=== PATIENT | male | born 1960 | race Caucasian/White ===

== ENCOUNTER 2017-04-02 11:53 | Outpatient (CLI) | payer BC ==
--- NOTE | 2017-04-02 15:27 | XRAY Report ---
EXAM: LEFT FOOT RADIOGRAPHY EXAM DATE: 04/02/2017 12:03 PM. CLINICAL HISTORY: LEFT FOOT PAIN AFTER FALLING. COMPARISON: None. TECHNIQUE: 3 views. FINDINGS: Bones: Small plantar spur. No fracture. No bone lesion. Joints: Mild first metatarsophalangeal joint osteoarthritis with osteophytosis Soft Tissues: Normal. No soft tissue swelling. IMPRESSION: 1. No fracture or dislocation 2. Mild first metatarsophalangeal joint osteoarthritis 3. Small plantar spur [facility] Referring Provider Line: [phone] SITE ID: [id number]
== END 2017-04-02 11:54 | disposition home or self-care (01) ==
LOC: DI.S 11:53
PROVIDERS: ATTEND Nurse Practitioner Family
DX: M19.072 Primary osteoarthritis, left ankle and foot (principal)

== ENCOUNTER 2018-05-08 15:35 | Outpatient (CLI) | payer BC ==
--- NOTE | 2018-05-09 10:35 | XRAY Report ---
Reason: CHRONIC BL MID FOOT PAIN Procedure Date: 05/08/2018 Accession Number: [id number] / [id number] Procedure: XR - Foot 3 View BILAT CPT Code: FULL RESULT: EXAMS: 1. RIGHT FOOT RADIOGRAPHY 2. LEFT FOOT RADIOGRAPHY EXAM DATE: 05/08/2018 04:13 PM. CLINICAL HISTORY: Chronic bilateral midfoot pain. COMPARISON: FOOT 3 VIEW LT 04/02/2017 12:04 PM. TECHNIQUE: 3 views each foot. FINDINGS: Right: Bones: Os trigonum with chronic-appearing fracture. No fractures or bone lesions. Joints: Normal. No subluxations. Soft Tissues: Vascular calcifications. Left: Bones: Normal. No fractures or bone lesions. Joints: Normal. No subluxations. Soft Tissues: Normal. No soft tissue swelling. 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 [facility]
== END 2018-05-08 15:36 | disposition home or self-care (01) ==
LOC: DI 15:35
PROVIDERS: ATTEND Podiatrist
DX: S82.891A Other fracture of right lower leg, initial encounter for closed fracture (principal)

== ENCOUNTER 2019-06-24 07:06 | Outpatient (CLI) | payer OTHER ==
[2019-06-24 10:27] LABS: CHOLESTEROL 158 mg/dL; HDL CHOLESTEROL 53 mg/dL; LDL CHOLESTEROL,CALCULATED 85 mg/dL; LDL/HDL RATIO 1.6 (<3.6); VLDL CHOLESTEROL 20 mg/dL
== END 2019-06-24 07:07 | disposition home or self-care (01) ==
LOC: LAB.S 07:06
PROVIDERS: ATTEND Internal Medicine Cardiovascular Disease
DX: E78.00 Pure hypercholesterolemia, unspecified (principal); I25.119 Atherosclerotic heart disease of native coronary artery with unspecified angina pectoris
CPT/HCPCS: 36415; 80061; 83721

== ENCOUNTER 2020-03-04 07:29 | Outpatient (CLI) | payer OTHER ==
[2020-03-04 15:21] LABS: CHOL/HDL RATIO 2.6 (<5.0); CHOLESTEROL 148 mg/dL; HDL CHOLESTEROL 57 mg/dL; LDL CHOLESTEROL,CALCULATED 77 mg/dL; LDL/HDL RATIO 1.4 (<3.6); VLDL CHOLESTEROL 14 mg/dL
== END 2020-03-04 07:30 | disposition home or self-care (01) ==
LOC: LAB.S 07:29
PROVIDERS: ATTEND Internal Medicine Cardiovascular Disease
DX: E78.00 Pure hypercholesterolemia, unspecified (principal); I25.119 Atherosclerotic heart disease of native coronary artery with unspecified angina pectoris
CPT/HCPCS: 36415; 80061; 83721

== ENCOUNTER 2020-12-13 12:32 | Outpatient (CLI) | payer OTHER ==
--- NOTE | 2020-12-13 18:43 | Ultrasound Report ---
PROCEDURE: Pelvic Limited or F/U INDICATIONS: GROIN MASS TECHNIQUE: Real-time scanning was performed of the left inguinal region. COMPARISON: None FINDINGS: The left groin, there is a 8mm fascial defect noted associated with a fat-containing left inguinal he rnia sac measuring 3.0 x 2.1 x 2.4 cm. No evidence of internal peristalsing bowel. Hernia appears to be reducible during the exam. IMPRESSION: Reducible fat-containing left inguinal hernia Reviewed by: Ashu Palacios MD on 12/13/2020 5:42 PM [facility] Approved by: Ashu Palacios MD on 12/13/2020 5:42 PM [facility] Station ID: [id number]
== END 2020-12-13 12:33 | disposition home or self-care (01) ==
LOC: DI 12:32
PROVIDERS: ATTEND Nurse Practitioner Family
DX: K40.90 Unilateral inguinal hernia, without obstruction or gangrene, not specified as recurrent (principal)

== ENCOUNTER 2021-01-19 10:26 | Day surgery (SDC) | payer OTHER ==
[2021-01-19] MEDS ORDERED: LACTATED RINGERS 1,000 ML IV ONE ×2 (10:52→14:26)
--- NOTE | 2021-01-19 11:21 | ANESTHESIA ---
Pre-Anesthesia VS, & Labs - Diagnosis recurrent left inguinal hernia - Procedure Laparoscopic left inguinal hernia repair with mesh Vital Signs: Temp Pulse Resp BP Pulse Ox 36.5 C 68 16 131/80 H 97 01/19/21 10:44 01/19/21 10:44 01/19/21 10:44 01/19/21 10:44 01/19/21 10:44 Height: 6 ft Weight (kg): 87 kg Body Mass Index: 25.9 BMI Classification: Overweight - NPO >8 hours Home Medications and Allergies Home Medications: Ambulatory Orders Arginine [l-Arginine] 1,500 mg PO BID 01/10/21 Aspirin [Aspirin EC] 81 mg PO DAILY 01/10/21 Cholecalciferol [Vitamin D3] 5,000 unit PO DAILY 01/10/21 Metoprolol Succinate [Toprol Xl] 25 mg PO DAILY 01/10/21 Rosuvastatin Calcium [Crestor] 40 mg PO DAILY 01/10/21 Tadalafil [Cialis] 20 mg PO PRN PRN 01/10/21 Ubidecarenone [Co Q-10] 300 mg PO DAILY 01/10/21 levOCARNitine tartrate [l-Carnitine] 1,500 mg PO BID 01/10/21 Arginine [l-Arginine] 1,500 mg PO BID 01/10/21 Aspirin [Aspirin EC] 81 mg PO DAILY 01/10/21 Cholecalciferol [Vitamin D3] 5,000 unit PO DAILY 01/10/21 Metoprolol Succinate [Toprol Xl] 25 mg PO DAILY 01/10/21 Rosuvastatin Calcium [Crestor] 40 mg PO DAILY 01/10/21 Tadalafil [Cialis] 20 mg PO PRN PRN 01/10/21 Ubidecarenone [Co Q-10] 300 mg PO DAILY 01/10/21 levOCARNitine tartrate [l-Carnitine] 1,500 mg PO BID 01/10/21 Allergies/Adverse Reactions: Allergies Allergy/AdvReac Type Severity Reaction Status Date / Time No Known Drug Allergies Allergy Verified 09/26/12 10:18 Anes History & Medical History - Medical History Cardiovascular: reports: High cholesterol, Coronary artery disease, Angina (non- obstructive angina) Pulmonary: reports: None Gastrointestinal: reports: None Urinary: reports: None Neuro: reports: None Musculoskeletal: reports: Osteoarthritis Endocrine/Autoimmune: reports: None Skin: reports: None Smoking Status: Former smoker Psychosocial: reports: Alcohol (typically 1-2 drinks per week) History of Cancer?: Yes (hx of squamous cell skin cancer) - Surgical History General: reports: Colonoscopy Cardiothoracic: reports: Coronary stent (RCA stent.) Orthopedic: reports: Arthroscopic surgery Exam General: Alert, Oriented x3, Cooperative, No acute distress Dental: Other (recent dental work for cracked molar) Mouth Openin Fingerbreadth Neck Mobility: Normal Mallampati classification: II Thyromental Distance: 4-6 cm Mental/Cognitive Status: Alert/Oriented X3, Normal for patient Plan Anesthesia Type: General Consent for Procedure(s) Verified and Reviewed: Yes Code Status: Attempt Resuscitation ASA classification: 3-Severe systemic disease Is this case an emergency?: No
[2021-01-19] MEDS ORDERED: ROCURONIUM 50 MG/5 ML VIAL ONE ×2 (12:20→14:05)
[2021-01-19] MEDS ORDERED: fentaNYL 100 MCG/2 ML VIAL ONE (12:20)
[2021-01-19] MEDS ORDERED: MIDAZOLAM 2 MG/2 ML VIAL ONE (12:20)
[2021-01-19] MEDS ORDERED: LIDOCAINE-MPF 2% 5 ML VIAL ONE (12:20)
[2021-01-19] MEDS ORDERED: PROPOFOL 200 MG/20 ML VIAL IVP ONE (12:20)
[2021-01-19] MEDS ORDERED: DEXAMETHASONE 4 MG/ML VIAL ONE (12:20)
[2021-01-19] MEDS ORDERED: ONDANSETRON 4 MG/2 ML VIAL ONE (12:20)
[2021-01-19] MEDS ORDERED: BUPIVACAINE 0.25% PF 30 ML VIAL ONE ×2 (12:22→14:03)
[2021-01-19] MEDS ORDERED: fentaNYL 100 MCG/2 ML VIAL IVP PRN (12:27)
[2021-01-19] MEDS ORDERED: ONDANSETRON 4 MG/2 ML VIAL IVP PRN (12:27)
[2021-01-19] MEDS ORDERED: HYDROmorphone 0.5 MG/0.5 ML SYRINGE IVP PRN (12:27)
[2021-01-19] MEDS ORDERED: MORPHINE 2 MG/ML CARPUJECT IVP PRN (12:27)
[2021-01-19] MEDS ORDERED: ATROPINE ABBOJECT 1 MG/10 ML SYRINGE IVP PRN (12:27)
[2021-01-19] MEDS ORDERED: NALOXONE 0.4 MG/ML VIAL IVP PRN (12:27)
[2021-01-19] MEDS ORDERED: ceFAZolin 1 GM VIAL ONE (12:51)
[2021-01-19] MEDS ORDERED: LACTATED RINGERS 1,000 ML IV SCH (13:00)
[2021-01-19] MEDS ORDERED: BUPIVACAINE 0.25% PF 30 ML VIAL SUBQ ONE ×2 (13:09)
[2021-01-19] MEDS ORDERED: SUGAMMADEX 200 MG/2 ML VIAL IVP ONE (14:07)
[2021-01-19] MEDS ORDERED: HYDROmorphone 1 MG/ML CARPUJECT ONE (14:16)
[2021-01-19] MEDS ORDERED: HYDROcod/ACETAM 5/325 MG TABLET PO PRN (14:31)
--- NOTE | 2021-01-19 14:38 | OPERATIVE REPORT ---
Operative Report - General Procedure Date: 01/19/21 Planned Procedure: laparoscopic repair recurrent left inguinal hernia Pre-Op Diagnosis: recurrent left inguinal hernia Procedure Performed: laparoscopic repair recurrent left inguinal hernia Post Op Diagnosis: recurrent indirect and direct - Procedure Note Primary Surgeon: robert evans Anesthesia Technique: General ET tube, Local Pathology: none Estimated Blood Loss (mL): 1 Indications: painful hernia bulge Findings: as above. significant scar tissue present Complications: none - Other Other Information/Narrative: The patient was prepped identified brought to the operating room and placed in supine position. General endotracheal anesthesia was induced. Quintal compression devices and Osorio catheter were placed. He was prepped and draped in a sterile fashion and given preoperative antibiotics. A 2 and half centimeter incision was made in the infrumbilical area. Dissection proceeded down to the fascia. The fascia was incised just right lateral of midline. The preperitoneal space was developed with gentle blunt retraction with finger dissection. A Burnett trocar was placed and secured with 3 interrupted 0 Vicryl sutures. A 30 degree scope was used. The preperitoneal space was further developed with the use of the scope. In midline 2 5 mm trochars were placed. The superficial epigastric vessels were kept along the cord structures. The pubic tubercle and Edwardo's ligament was defined. Cord structures were defined. A pocket was created large enough for a large preformed mesh. Patient had a large indirect inguinal hernia. The indirect hernia sac was mobilized off from the cord structures and further towards the retroperitoneum. The indirect hernia sac was tied with an Endoloop. Preperitoneal adipose tissue was removed from the internal ring. Large preformed mesh was then placed. It was secured with a CapSure tacker at the pubic tubercle Edwardo's ligament area and under the rectus musculature. Trochars were removed under direct vision and CO2 evacuated. Fascia at the infraumbilical site was closed with a total of 4-0 Vicryl sutures. Skin was closed with running or buried interrupted 4-0 Monocryl. Dressings were applied. Osorio catheter was removed. He was awakened and brought to recovery in good condition.
[2021-01-19 15:18] VITALS: BP 124/84
--- NOTE | 2021-01-19 16:46 | ANESTHESIA POST OP EVALUATION ---
Anesthesia Post Eval - Post Anesthesia Eval Vitals: Last Vital Signs Temp 37 C 01/19/21 14:49 Pulse 75 01/19/21 15:17 Resp 20 01/19/21 15:17 BP 124/84 H 01/19/21 15:17 Pulse Ox 97 01/19/21 15:17 CV Function Including HR & BP: Stable Pain Control: Satisfactory Nausea & Vomiting: Negative Mental Status: Baseline Respiratory Status: Airway Patent Hydration Status: Satisfactory Anesthesia Complications: None
== END 2021-01-19 10:27 | disposition home or self-care (01) ==
LOC: SDS 10:26
PROVIDERS: ATTEND Surgery
DX: K40.91 Unilateral inguinal hernia, without obstruction or gangrene, recurrent (principal); I25.119 Atherosclerotic heart disease of native coronary artery with unspecified angina pectoris; E78.2 Mixed hyperlipidemia; Z79.82 Long term (current) use of aspirin; Z79.899 Other long term (current) drug therapy; Z95.5 Presence of coronary angioplasty implant and graft; Z87.891 Personal history of nicotine dependence
CPT/HCPCS: 49651; C1781; J1170; J7120

== ENCOUNTER 2021-03-18 07:09 | Outpatient (CLI) | payer OTHER ==
[2021-03-18 15:25] LABS: ALT ALANINE AMINOTRANSFERASE 32 IU/L (10-60); CHOL/HDL RATIO 2.6 (<5.0); CHOLESTEROL 153 mg/dL; HDL CHOLESTEROL 58 mg/dL; LDL CHOLESTEROL,CALCULATED 81 mg/dL; LDL/HDL RATIO 1.4 (<3.6); TRIGLYCERIDES 71 mg/dL; VLDL CHOLESTEROL 14 mg/dL
== END 2021-03-18 07:10 | disposition home or self-care (01) ==
LOC: LAB.S 07:09
PROVIDERS: ATTEND Internal Medicine Cardiovascular Disease
DX: E78.00 Pure hypercholesterolemia, unspecified (principal); I25.119 Atherosclerotic heart disease of native coronary artery with unspecified angina pectoris
CPT/HCPCS: 36415; 80061; 83721; 84460

== ENCOUNTER 2021-03-23 06:31 | Day surgery (SDC) | payer OTHER ==
[2021-03-23] MEDS ORDERED: LACTATED RINGERS 1,000 ML IV ONE (07:09)
[2021-03-23] MEDS ORDERED: PROPOFOL 500 MG/50 ML 500 MG/50 ML VIAL ONE (07:16)
[2021-03-23] MEDS ORDERED: LIDOCAINE-MPF 2% 5 ML VIAL ONE (07:16)
[2021-03-23] MEDS ORDERED: MIDAZOLAM 2 MG/2 ML VIAL ONE (07:23)
--- NOTE | 2021-03-23 07:24 | HISTORY & PHYSICAL EXAMINATION ---
Chief Complaint - Chief Complaint Chief Complaint: Here for colon cancer screening History of Present Illness - Admitted From Admitted From:: ED - History Obtained From Records Reviewed: yes History obtained from: pt Exam Limitations: none - History of Present Illness HPI Comment/Other: Normal colonoscopy 10 years ago. No anemia or intestinal symptoms. History - Past Medical History Cardiovascular: reports: High cholesterol, Coronary artery disease, Angina Respiratory: reports: None Neuro: reports: None Endocrine/Autoimmune: reports: None GI: reports: None : reports: None HEENT: reports: Chronic vision loss, Chronic hearing loss Psych: reports: None Musculoskeletal: reports: Osteoarthritis Derm: reports: None MRSA Hx?: No - Past Surgical History General: reports: Colonoscopy Ortho: reports: Arthroscopic surgery Cardiovascular: reports: Coronary stent Meds/Allgy - Home Medications Home Medications: Ambulatory Orders Medication Instructions Recorded Confirmed Arginine [l-Arginine] 1,500 mg PO BID 01/10/21 03/23/21 Aspirin [Aspirin EC] 81 mg PO DAILY 01/10/21 03/23/21 Cholecalciferol [Vitamin D3] 5,000 unit PO DAILY 01/10/21 03/23/21 Metoprolol Succinate [Toprol Xl] 25 mg PO DAILY 01/10/21 03/23/21 Rosuvastatin Calcium [Crestor] 40 mg PO DAILY 01/10/21 03/23/21 Tadalafil [Cialis] 20 mg PO PRN PRN 01/10/21 03/23/21 Ubidecarenone [Co Q-10] 300 mg PO DAILY 01/10/21 03/23/21 levOCARNitine tartrate 1,500 mg PO BID 01/10/21 03/23/21 [l-Carnitine] - Allergies Allergies/Adverse Reactions: Allergies Allergy/AdvReac Type Severity Reaction Status Date / Time No Known Drug Allergies Allergy Verified 09/26/12 10:18 Review of Systems - Constitutional Constitutional: reports: Fatigue (10 pt ros as above otherwise unremarkable) Exam - Vital Signs Reviewed Vital Signs: Yes Vital Signs: Vital Signs x48h Temp Pulse Resp BP Pulse Ox 03/23/21 06:59 36.3 C L 68 16 145/84 H 98 - Physical Exam General Appearance: positive: No acute distress, Alert ENT: positive: No signs of dehydration Neck: positive: No JVD Respiratory: positive: No respiratory distress, Breath sounds nml Cardiovascular: positive: Regular rate & rhythm Abdomen: positive: Non-tender, No distention Neurologic/Psychiatric: positive: Oriented x3 Conclusion/Plan - Problem List (1) Colon cancer screening Conclusion/Plan: plan colonoscopy. parq held and consent obtained
--- NOTE | 2021-03-23 07:27 | ANESTHESIA ---
Pre-Anesthesia VS, & Labs - Diagnosis screening - Procedure colonoscopy Vital Signs: Temp Pulse Resp BP Pulse Ox 36.3 C L 68 16 145/84 H 98 03/23/21 06:59 03/23/21 06:59 03/23/21 06:59 03/23/21 06:59 03/23/21 06:59 Height: 6 ft Weight (kg): 86.5 kg Body Mass Index: 25.8 BMI Classification: Overweight - NPO >8 hours Home Medications and Allergies Arginine [l-Arginine] 1,500 mg PO BID 01/10/21 Aspirin [Aspirin EC] 81 mg PO DAILY 01/10/21 Cholecalciferol [Vitamin D3] 5,000 unit PO DAILY 01/10/21 Metoprolol Succinate [Toprol Xl] 25 mg PO DAILY 01/10/21 Rosuvastatin Calcium [Crestor] 40 mg PO DAILY 01/10/21 Tadalafil [Cialis] 20 mg PO PRN PRN 01/10/21 Ubidecarenone [Co Q-10] 300 mg PO DAILY 01/10/21 levOCARNitine tartrate [l-Carnitine] 1,500 mg PO BID 01/10/21 Allergies/Adverse Reactions: Allergies Allergy/AdvReac Type Severity Reaction Status Date / Time No Known Drug Allergies Allergy Verified 09/26/12 10:18 Anes History & Medical History - Anesthetic History Anesthesia Complications: reports: No previous complications Family history of Anesthesia Complications: Denies Family history of Malignant Hyperthermia: Denies - Medical History Cardiovascular: reports: High cholesterol, Coronary artery disease, Angina Pulmonary: reports: None Gastrointestinal: reports: None Urinary: reports: None Neuro: reports: None Musculoskeletal: reports: Osteoarthritis Endocrine/Autoimmune: reports: None Skin: reports: None Smoking Status: Former smoker - Surgical History General: reports: Colonoscopy Cardiothoracic: reports: Coronary stent Orthopedic: reports: Arthroscopic surgery Exam General: Alert, Oriented x3, Cooperative Dental: WNL Mouth Openin Fingerbreadth Mallampati classification: I Thyromental Distance: 4-6 cm Respiratory: Lungs clear Cardiovascular: Regular rate Plan Anesthesia Type: Total IV Consent for Procedure(s) Verified and Reviewed: Yes Code Status: Attempt Resuscitation ASA classification: 2-Mild systemic disease Is this case an emergency?: No
[2021-03-23] MEDS ORDERED: fentaNYL 100 MCG/2 ML VIAL ONE (07:50)
[2021-03-23] MEDS ORDERED: LACTATED RINGERS 500 ML IV ONE (08:10)
--- NOTE | 2021-03-23 08:18 | ANESTHESIA POST OP EVALUATION ---
Anesthesia Post Eval - Post Anesthesia Eval Vitals: Last Vital Signs Temp 36.3 C L 03/23/21 08:10 Pulse 68 03/23/21 08:16 Resp 14 03/23/21 08:16 BP 103/62 03/23/21 08:16 Pulse Ox 97 03/23/21 08:16 CV Function Including HR & BP: Stable Pain Control: Satisfactory Nausea & Vomiting: Negative Mental Status: Baseline Respiratory Status: Airway Patent Hydration Status: Satisfactory Anesthesia Complications: None
[2021-03-23 08:31] VITALS: BP 116/76
== END 2021-03-23 06:32 | disposition home or self-care (01) ==
LOC: SDS 06:31
PROVIDERS: ATTEND Surgery
DX: Z12.11 Encounter for screening for malignant neoplasm of colon (principal); K57.30 Diverticulosis of large intestine without perforation or abscess without bleeding; I25.119 Atherosclerotic heart disease of native coronary artery with unspecified angina pectoris; E78.00 Pure hypercholesterolemia, unspecified; H54.7 Unspecified visual loss; H91.90 Unspecified hearing loss, unspecified ear; Z95.5 Presence of coronary angioplasty implant and graft; Z79.82 Long term (current) use of aspirin; Z79.899 Other long term (current) drug therapy; Z87.891 Personal history of nicotine dependence
CPT/HCPCS: 45378; J7120

== ENCOUNTER 2021-09-09 07:17 | Outpatient (CLI) | payer OTHER ==
[2021-09-09 15:42] LABS: ALT ALANINE AMINOTRANSFERASE 33 IU/L (10-60); AST ASPARTATE AMINOTRANSFERASE 32 IU/L (10-42); CHOL/HDL RATIO 2.5 (<5.0); CHOLESTEROL 152 mg/dL; HDL CHOLESTEROL 60 mg/dL; LDL CHOLESTEROL,CALCULATED 79 mg/dL; LDL/HDL RATIO 1.3 (<3.6); TRIGLYCERIDES 67 mg/dL; VLDL CHOLESTEROL 13 mg/dL
== END 2021-09-09 07:18 | disposition home or self-care (01) ==
LOC: LAB.S 07:17
PROVIDERS: ATTEND Internal Medicine Cardiovascular Disease
DX: E78.00 Pure hypercholesterolemia, unspecified (principal)
CPT/HCPCS: 36415; 80061; 83721; 84450; 84460

== ENCOUNTER 2023-08-06 07:54 | Outpatient (CLI) | payer OTHER ==
--- NOTE | 2023-08-06 10:14 | Ultrasound Report ---
PROCEDURE: Pelvic Limited INDICATIONS: L INGUINAL PAIN TECHNIQUE: Real-time transabdominal scanning was performed of the left groin, with image documentation. COMPARISON: Ultrasound 12/13/2020. FINDINGS: Targeted ultrasound of the left groin demonstrates no inguinal hernia. Suspected left inguinal hernia mesh present, with posterior shadowing. IMPRESSION: No evidence of recurrent left inguinal hernia. Reviewed by: Omer Rodriguez MD on 08/06/2023 10:12 AM PDT Approved by: Omer Rodriguez MD on 08/06/2023 10:12 AM PDT Station ID: [id number]
== END 2023-08-06 07:55 | disposition home or self-care (01) ==
LOC: DI 07:54
PROVIDERS: ATTEND Nurse Practitioner Family
DX: R10.32 Left lower quadrant pain (principal)

== ENCOUNTER 2023-10-04 07:39 | Outpatient (CLI) | payer OTHER | END 2023-10-04 07:40 | disposition home or self-care (01) | LOC: LAB.S 07:39 | PROVIDERS: ATTEND Urology | DX: N40.0 Benign prostatic hyperplasia without lower urinary tract symptoms (principal); Z12.5 Encounter for screening for malignant neoplasm of prostate | CPT/HCPCS: 36415; 84153; 84154 ==